=== PATIENT | female | born 1995 | race Two or more races ===

== ENCOUNTER 2019-01-25 16:53 | Emergency (ER) | payer BC ==
[~2019-01-25] VITALS: Ht 152.4 cm; Wt 104.1 kg
[~2019-01-25 16:53] MED LIST: FLUT9.9S NS; IBUP-1542 PO; PSEU30TA38 PO
[2019-01-25 16:59] VITALS: BP 140/88; PULSE 86; RESP 20; Ht 152.4 cm; Wt 104.1 kg
== END 2019-01-25 19:22 | disposition home or self-care (01) ==
LOC: FTE 16:53
DX: N92.0 Excessive and frequent menstruation with regular cycle (principal)
CPT/HCPCS: 36415; 76856; 80048; 81001; 84702; 85025; 87591; Z7502